=== PATIENT | female | born 2005 | race Caucasian/White ===

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

== ENCOUNTER 2025-01-01 06:31 | Day surgery (SDC) | payer OTHER, SELFPAY ==
[2025-01-01] VITALS (7 sets, daily range): BP systolic 107–124; BP diastolic 68–95; BMI 22.9
[2025-01-01] MEDS: NORMOSOL-R/PLASMALYTE-A 1000 IV (09:44)
[2025-01-01] MEDS: DILAUDID 0.25 MG IV (12:39)
[2025-01-01] MEDS: ATIVAN 1 MG IV (12:46)
--- NOTE | 2025-01-01 13:00 | PTCARENOTE ---
Pt received from PACU appearing very anxious, breathing heavily not really responding to questions when asked. VSS. Pt's mom was brought in to sit with pt as soon as pt arrived in [facility] to help relax pt. This however did not ease pt's anxiety and
then pt began to c/o severe throat pain. Dr Marsh was notified and came to see pt at bedside. After speaking with pt & his mother, ordered dilaudid IV & ativan IV for the pt's pain & anxiety. Meds were given as ordered & pt was moved to
monitored bed in [facility]. Will continue to monitor.
== END 2025-01-01 13:35 | disposition home or self-care (01) ==
LOC: SDS 06:31
PROVIDERS: ATTENDING PHYSICIAN Otolaryngology Facial Plastic Surgery
DX: J38.3 Other diseases of vocal cords (principal)
CPT/HCPCS: 31536; 88305